=== PATIENT | female | born 1945 | race Caucasian/White ===

== ENCOUNTER 2016-07-13 19:25 | Inpatient (IN) | payer MEDICARE ==
[2016-07-13] MEDS ORDERED: METOPROLOL TARTRATE 25 MG TAB PO ONE (19:40)
[2016-07-13] MEDS ORDERED: ASPIRIN (CHEWABLE) 81 MG TAB PO ONE (19:40)
[2016-07-13] MEDS ORDERED: NS 1,000 ML IV ONE (19:40)
[2016-07-13] MEDS ORDERED: SODIUM CHLORIDE 0.9% 10 ML FLUSH FLUSH PRN (19:40)
[2016-07-13] MEDS: NITROGLYCERINE 0.4 MG TAB SL SCH ×3 (20:00→20:19)
[2016-07-13] MEDS ORDERED: Nitroglycerin D5W 50,000 MCG/250 ML IVBOT IV SCH (20:00)
--- NOTE | 2016-07-13 20:00 | EDPRACDOC ---
- General Information Chief Complaint: Chest Pain Stated Complaint: ARRHYTHMIA Time Seen by Provider: 07/13/16 19:40 Information Source: Patient Mode of Arrival: Car Home Medications: Home Medications Benazepril HCl [Lotensin] 20 mg PO DAILY 09/06/12 Furosemide [Lasix] 40 mg PO DAILY 09/06/12 Pravastatin Sodium [Pravachol] 10 mg PO DAILY 09/06/12 Metformin HCl 850 mg PO BID 09/07/12 Warfarin Sodium [Coumadin] 7 mg PO DAILY@1800 09/07/12 Cyclobenzaprine HCl 10 mg PO BID PRN 10/06/13 Docusate Sodium [Stool Softener] 100 mg PO DAILY PRN 10/06/13 Ferrous Sulfate [Iron] 325 mg PO DAILY 10/06/13 Glimepiride 1 mg PO DAILY 10/06/13 Hydrochlorothiazide 12.5 mg PO DAILY 10/06/13 Metoprolol Tartrate 25 mg PO BID 10/06/13 Digoxin [Lanoxin, Digitek] 0.125 mg PO DAILY 04/08/15 Diltiazem HCl [Cartia Xt] 120 mg PO DAILY 04/08/15 Allergies/Adverse Reactions: Allergies Allergy/AdvReac Type Severity Reaction Status Date / Time codeine Allergy Unknown Nausea/Vomi Verified 07/12/15 05:37 ting morphine Allergy Nausea/Vomi Verified 07/12/15 05:37 ting promethazine HCl Allergy SHAKEN Verified 07/12/15 05:37 [From Phenergan] - History of Present Illness Onset: 30 MINS Chest Pain Location: Reports: Substernal, Left Chest Pain Radiation: Reports: Shoulder (L) Symptoms Occur: Reports: Gradually Cardiac Risk Factors: Reports: Other (AFIB; AORTIC STENOSIS; DISCUSSES SURGERY BEFORE) Cardiac History of: Reports: Valve Disease, Stress Test PE Risk Factors: Reports: None Pain Came On: Reports: Gradually Pain Status: Present Now Pain Description: Reports: Sharp Pain Severity: Mild Pain Worsens With: Reports: Exertion Pain Improves With: Reports: Nitroglycerin Associated Signs and Symptoms: Reports: SOB ED Past Medical History - History Reviewed Yes Nurses notes reviewed and agree except as marked - Patient Medical History Neurological History: Reports: Cerebrovascular Accident (2009), Seizures, Epilepsy Cardiac History: Reports: Atrial Fibrillation, Hypertension, Hypercholesterolemia, Valvular Heart Disease Respiratory History: Reports: Pneumonia Musculoskeletal History: Reports: Arthritis Psychological History: Denies: Depression Systemic History: Reports: Anemia, Diabetes Surgical History: Reports: Cholecystectomy, Hysterectomy (PARTIAL), Tonsillectomy/Adnoidectomy - Family Medical History Reports: Cancer (AUNTS). Denies: Hypertension, Diabetes, Stroke, Cardiac Disorders - Social Medical History Smoking Status: Former smoker EDM Review of Systems - Review of Systems ROS Negative Except as Marked: Yes All systems reviewed and were negative except as marked - Physical Exam Constitutional: Alert (Awake), No apparent distress Oriented to: Time, Person, Place Last recorded Vital Signs: Last Vital Signs Temp Pulse 80 07/13/16 19:55 Resp 22 07/13/16 19:55 BP 141/60 07/13/16 19:55 Pulse Ox 100 07/13/16 19:55 Oxygen Pulse Oxygen Saturation 100 O2 Device Room Air Oxygen Flow Rate Fraction of Inspired Oxygen ( FIO2) - HEENT Head: Normal ( normocephalic) Eye Exam: Normal (PERRL, EOMI, Sclera white) Oropharynx: Normal (Pharynx:Moist without exudate,Gums-no swelling) Tympanic Membrane: Normal ENT EAC: Normal TMJ: Normal Nose: No Symptoms Reported (septum midline) Neck: Normal (FROM, trachea at midline) - Respiratory/Cardiovascular Respiratory: Normal - CTA (BBS clear to auscultation without adventitious sounds ) Cardiovascular: Normal (RRR without murmur, gallop or rub), Systolic murmur - GI Auscultation: Normal (NABS) Palpation: Normal (Soft,No rebound or guarding, non distended) Tenderness: Non tender Lamar's Sign: Negative - Musculoskeletal Back: Normal (Non-Tender) Extremities: Normal (Normal tone, Pulses 2+ No cyanosis or edema, FROM) - Integumentary Skin: Normal, Warm, Dry Lymphatics: Normal (no adenopathy) - Neurologic Memory Impaired: Normal Motor Function: Normal (Normal tone, Pulses 2+ No cyanosis or edema, FROM) Cranial Nerve: Normal (CN II-X11 intact sensation, strength 5/5) Cerebellar: Normal Mood Description: Normal Perception: Normal - Action Patient received Aspirin within last 24 hours?: Yes ASA given in the ED: No Aspirin therapy held due to: Warfarin Home Med Patient received Beta Shakira within last 24hrs: Yes - Results 07/13/16 19:45 - EKG EKG #1 [place]: Normal Rhythm: Afib Block: None Hypertrophy: None ST: Inf, Lat, Ischemia - Additional Information DW DR. SHERMAN. I FAXED HIM OLD AND NEW EKG. WANTS HOSP TO ADMIT. HE WILL SEE TOMORROW AND CHECK ECHO ED Critical Care Note - Critical Care Note Total Time (mins): 35 - Departure Yes I personally saw and evaluated the patient. Disposition: Admit IP To This Hospital Final Diagnosis: Angina, AORTIC STENOSIS Instructions: Chest Pain (ED) Decision to Admit Time: 20:30 (ISAI) Decision to admit date: 07/13/16 Decision to admit: from ED - Physician Consulted Cardiology Time Called: 20:00 (LANE)
[2016-07-13] MEDS ORDERED: HYDROmorphone 1 MG INJECTION IV ONE (20:07)
[2016-07-13] MEDS ORDERED: ONDANSETRON HCL 4 MG/2 ML VIAL IV ONE (20:07)
[2016-07-13] MEDS ORDERED: TRAMADOL HCL 50 MG TAB PO ONE ×2 (20:13→22:00)
[2016-07-13 20:14] LABS: AUTOMATED BASOPHIL 0.7 % (0-2); AUTOMATED LYMPH 30.9 % (17-44); AUTOMATED MONOCYTE 9.1 % (3-10); AUTOMATED NEUTROPHIL 57.3 % (45-76); MPV 7.4 fL (7.4-10.4)
--- NOTE | 2016-07-13 20:15 | DIRPT ---
CLINICAL DATA: 71-year-old female with chest pain and shortness of breath. EXAM: PORTABLE CHEST 1 VIEW COMPARISON: 07/12/2015 and prior exams FINDINGS: The cardiomediastinal silhouette is unremarkable. Mild right basilar scarring again noted. There is no evidence of focal airspace disease, pulmonary edema, suspicious pulmonary nodule/mass, pleural effusion, or pneumothorax. No acute bony abnormalities are identified. IMPRESSION: No active disease. Electronically Signed By: Abdullahi Go M.D. On: 07/13/2016 20:12
[2016-07-13 20:30] LABS: PARTIAL THROMB. TIME 36.9 SEC (22-35); PT-INR 3.7
[2016-07-13 20:32] LABS: BLOOD UREA NITROGEN 21 MG/DL (7-17); CALCIUM 10.1 MG/DL (8.4-10.2); CALCULATED OSMOLALITY 281 MOs/Kg (270-290); CHLORIDE 105 mEq/L (98-107); GLUCOSE 147 MG/DL (70-99); SODIUM LEVEL 143 mEq/L (137-146); TOTAL PROTEIN 7.4 G/DL (6.3-8.2)
--- NOTE | 2016-07-13 21:11 | HISTPHYS ---
- Chief Complaint chest pain, not feeling well - History of Present Illness PRIMARY CARE PROVIDER: Dr. Ethan Marrero PLATE MOLDER: Dr. Kenney HPI: The patient is a 71 yo woman who presents with chest pain and not feeling well. It started this evening after she ate dinner. Her face was flushed and the chest pain started. It is the worst chest pain she ever had. She has also had dizziness with standing up, and felt like she was going to pass out. Onset: Today. Duration: intermittent. Location: substernal. Radiation: right jaw and back. Also right shoulder. Character: Squeezing. Burning. 03/23. Has had pressure in the past but not this time. Alleviated by: Nothing. Exacerbated by: any exertion. Associated Symptoms: Dizziness when standing and felt like she was almost going to pass out. Diaphoresis. Heart racing/palpitations. Shortness of breath with the pain. Coughing. Wheezing. Weakness and fatigue. Fever a week before Katina. Chills have resolved. Recently had a respiratory illness. Treatments: none at home except usual medications. - Medical History Cardiac History: Reports: Atrial Fibrillation, Hypertension, Heart Attack, Cardiac Catheterization (2003), Hypercholesterolemia, Valvular Heart Disease ( AORTIC STENOSIS. Echo 08/2015.) Musculoskeletal History: Reports: Arthritis Systemic History: Reports: Anemia, Diabetes (Type 2.) Neurological History: Reports: Cerebrovascular Accident (2003, 2009), Seizures, Epilepsy Psychological History: Denies: Depression ECHOCARDIOGRAM 08/2015: FINDINGS ------- Procedure:2D images, m-mode, color and spectral Doppler were obtained and reviewed. ECG rhythm:Sinus rhythm. Study quality:This was a technically adequate study. Left Ventricle:The left ventricular size is normal. There is borderline concentric left ventricular hypertrophy. Overall left ventricular systolic function is normal with, an EF between 65 - 70 %. The diastolic filling pattern indicates impaired relaxation. No regional wall motion abnormalities were noted. Right Ventricle:The right ventricle is normal in size and function. Left Atrium:Left atrium is elongated, at least moderately dilated, in NSR. Right Atrium:The right atrium is normal in size and function. Aortic Valve:The aortic valve is trileaflet, calcified with restricted mobility. . Moderate aortic stenosis with peak/mean pressure gradient of 65 / 37 mmHg, the aortic valve area by continuity equation is 1.1 cm2. Trace regurgitation. Mitral Valve:Marked mitral annular calcification and leaflets are moderately thickened, with restricted posterior leaflet mobility. Mild mitral regurgitation is present. Mild mitral stenosis. Tricuspid Valve:The tricuspid valve appears structurally normal. Trace tricuspid regurgitation present. Right ventricular systolic pressure is normal at < 35 mmHg. Pulmonic Valve:The pulmonic valve is normal. There is no pulmonic regurgitation present. Aorta:The aortic root, ascending aorta and aortic arch appear normal. IVC:Normal inferior vena cava with normal inspiratory collapse. Pericardium:There is no pericardial effusion. CONCLUSIONS EF between 65 - 70 %. 1. AORTIC STENOSIS: calcific aortic stenosis - moderate - with trace aortic regurgitation 2. mitral annular calcification and leaflet thickening, mild stenosis and mild mitral regurgitation 3. moderate left atrial dilataiton, in NSR 4. normal right heart size/function, mild TR, normal pulm artery pressure suggested. 5. The diastolic filling pattern indicates impaired relaxation. cc: Dr. Marrero. - Surgical History Reports: Cholecystectomy, Hysterectomy (PARTIAL), Tonsillectomy/Adnoidectomy - Medictions/Allergies Allergies codeine Allergy (Unknown, Verified 07/13/16 20:07) Nausea/Vomiting morphine Allergy (Verified 07/13/16 20:07) Nausea/Vomiting promethazine HCl [From Phenergan] Allergy (Verified 07/13/16 20:07) SHAKEN Current Medication List: Reviewed Home Medications Benazepril HCl [Lotensin] 20 mg PO DAILY 09/06/12 Furosemide [Lasix] 40 mg PO DAILY 09/06/12 Pravastatin Sodium [Pravachol] 10 mg PO DAILY 09/06/12 Metformin HCl 850 mg PO BID 09/07/12 Warfarin Sodium [Coumadin] 7 mg PO DAILY@1800 09/07/12 Glimepiride 1 mg PO BID 10/06/13 Hydrochlorothiazide 12.5 mg PO DAILY 10/06/13 Digoxin [Lanoxin, Digitek] 0.125 mg PO DAILY 04/08/15 Diltiazem HCl [Cartia Xt] 120 mg PO DAILY 04/08/15 Cholecalciferol (Vitamin D3) [D3 Dots] 2,000 unit PO DAILY 07/13/16 Cyclobenzaprine HCl [Flexeril] 10 mg PO BID PRN 07/13/16 Docusate Sodium [Stool Softener] 100 mg PO DAILY 07/13/16 Ferrous Sulfate [Feosol] 325 mg PO .BID MOWEFR 07/13/16 Ferrous Sulfate [Feosol] 325 mg PO SUTUTHSA 07/13/16 Metoprolol Tartrate [Lopressor] 25 mg PO BID 07/13/16 Omeprazole 20 mg PO DAILY 07/13/16 Tramadol HCl [Ultram] 50 mg PO QAM 07/13/16 Tramadol HCl [Ultram] 100 mg PO HS 07/13/16 - Family History Reports: Cancer (Mother: liver. AUNT - liver.), Other (Father unknown. No other family history known.) - Social History Smoking Status: Former smoker (smoked only about 3 years in her life) Social History: Denies: Alcohol Use, Substance Use Disorder - Review of Systems GENERAL: Diaphoresis. Positive for fatigue/malaise. Fever a week before Katina. Chills have resolved. HEENT: No ear pain or discharge. No nasal discharge or bleeding. No throat pain or swelling. No eye pain or eye redness. RESPIRATORY: Cough, wheezing, and shortness of breath. CARDIOVASCULAR: Chest pain and palpitations. GI: No abdominal pain, nausea, vomiting, diarrhea, constipation, or bloody stool. NEUROLOGICAL: No headache or focal weakness. INTEGUMENT: no rashes, itching, or lesions. LYMPHATIC SYSTEM: no lymph node swelling or pain. MUSCULOSKELETAL: no pain or joint swelling. GENITOURINARY: No dysuria or hematuria. ENDOCRINE: No polyuria or polydipsia. HEME: No chronic anemia, bleeding, or easy bruising. - Physical Exam Vital Signs: Initial Vitals Pulse Rate 72 07/13/16 19:41 Respiratory Rate 22 07/13/16 19:41 Blood Pressure 134/56 L 07/13/16 19:41 Pulse Oxygen Saturation 100 07/13/16 19:41 Vital Signs - 24 hr 07/13/16 07/13/16 07/13/16 19:41 19:46 19:55 Pulse Rate 72 86 80 Respiratory 22 20 22 Rate Blood Pressure 134/56 L 139/59 L 141/60 Pulse Oxygen 100 100 100 Saturation 07/13/16 07/13/16 07/13/16 19:56 20:01 20:06 Pulse Rate 95 94 97 Respiratory 22 22 20 Rate Blood Pressure 124/58 L 130/60 115/56 L Pulse Oxygen 100 100 100 Saturation 07/13/16 07/13/16 07/13/16 20:11 20:15 20:20 Pulse Rate 81 104 136 H Respiratory 20 20 20 Rate Blood Pressure 116/69 117/65 132/58 L Pulse Oxygen 100 100 99 Saturation 07/13/16 07/13/16 07/13/16 20:25 20:28 20:31 Pulse Rate 106 107 99 Respiratory 20 20 20 Rate Blood Pressure 119/58 L 118/55 L 105/52 L Pulse Oxygen 99 98 95 Saturation 07/13/16 07/13/16 07/13/16 20:36 20:41 20:46 Pulse Rate 72 72 97 Respiratory 20 20 20 Rate Blood Pressure 118/55 L 118/55 L 159/61 Pulse Oxygen 98 98 99 Saturation Weight: 74.4 kg Height: 5'3" BMI: 29.1 - Other Exam Other Exam Findings: GENERAL: Ill-appearing, well nourished, in acute distress. HEENT: Normocephalic, atraumatic; pupils equal and round. Nares patent, without discharge or bleeding. No oropharyngeal lesions or erythema. Mucous membranes are dry. NECK: is supple, no masses, trachea midline. RESPIRATORY: Clear to auscultation bilaterally. Chest wall movements are symmetric. No use of accessory muscles to breathe. No wheezing, rales, rhonchi. CARDIOVASCULAR: Normal S1, S2. Murmur 3/6 systolic. No rubs, or gallops. PMI non -displaced. Carotids: no carotid bruits. No bradycardia or tachycardia. DP pulses 2+ bilaterally. GI: soft, nontender, non-distended, normal active bowel sounds. No hepatosplenomegaly. INTEGUMENT: Clean, dry, and intact. No rashes. No lesions. MUSCULOSKELETAL: Moving all extremities. No cyanosis. No clubbing. Edema: trace lower extremity edema bilaterally. NEUROLOGICAL: Cranial nerves 2-12 grossly intact. Motor 5/5 throughout. Reflexes : 2+ bilaterally. Babinski: toes downgoing bilaterally. Intact Finger to nose. Sensory grossly intact to light touch. Intact rapid alternating movements bilaterally. No pronator drift. PSYCHIATRIC: Fully oriented. Normal and appropriate affect. LYMPHATIC: No cervical lymphadenopathy. No supraclavicular lymphadenopathy. - Lab Results Laboratory Results - last 24 hr 07/13/16 07/13/16 07/13/16 19:45 19:45 19:45 WBC 9.5 RBC 3.79 L Hgb 10.7 L Hct 32.8 L MCV 87 MCH 28.3 MCHC 32.7 L RDW 14.1 Plt Count 320 MPV 7.4 Neut % (Auto) 57.3 Lymph % (Auto) 30.9 Ocean % (Auto) 9.1 Eos % (Auto) 2.0 Baso % (Auto) 0.7 Absolute Neuts (auto) 5.42 Absolute Lymphs (auto) 2.85 PT INR APTT Sodium 143 Potassium 3.2 L Chloride 105 Carbon Dioxide 24 Anion Gap 17 H BUN 21 H Creatinine 0.90 Estimated GFR (MDRD) > 60 Glucose 147 H Calculated Osmolality 281 Calcium 10.1 Total Bilirubin 0.4 AST 28 ALT 33 Alkaline Phosphatase 79 Troponin I < 0.01 Yvv-M-Kivvmedvnht Pept 1820 H Total Protein 7.4 Albumin 4.0 Digoxin 0.80 07/13/16 20:10 WBC RBC Hgb Hct MCV MCH MCHC RDW Plt Count MPV Neut % (Auto) Lymph % (Auto) Ocean % (Auto) Eos % (Auto) Baso % (Auto) Absolute Neuts (auto) Absolute Lymphs (auto) PT 38.5 H INR 3.7 APTT 36.9 H Sodium Potassium Chloride Carbon Dioxide Anion Gap BUN Creatinine Estimated GFR (MDRD) Glucose Calculated Osmolality Calcium Total Bilirubin AST ALT Alkaline Phosphatase Troponin I Euh-H-Gxjqezixoqu Pept Total Protein Albumin Digoxin - Diagnostic Findings EKG #1 at 19:36: 94 bpm. Atrial fibrillation with PACs. ST depression and elevation, consider lateral injury or acute infarct. Marked ST depression in leads 2, 3, aVF, V3, V4, V5, and V6. Elevation in aVR. Minimal elevation of aVL. Reviewed EKG personally. EKG #2 at 1944: 81 bpm. Atrial fibrillation with PACs. ST depression and elevation, consider lateral injury or acute infarct. Marked ST depression in leads 2, 3, aVF, V3, V4, V5, and V6. Elevation in aVR. Minimal elevation of aVL. Reviewed EKG personally. Compared above EKGs to previous EKG from 06/2015: ST depressions in 2, 3, aVF, V4, V5, and V6 were all present but new EKGs have deeper ST depressions. The elevations in aVR and minimal elevation in aVL are essentially unchanged. Reviewed EKG personally. Chest x-ray, viewed personally: EXAM: PORTABLE CHEST 1 VIEW COMPARISON: 07/12/2015 and prior exams FINDINGS: The cardiomediastinal silhouette is unremarkable. Mild right basilar scarring again noted. There is no evidence of focal airspace disease, pulmonary edema, suspicious pulmonary nodule/mass, pleural effusion, or pneumothorax. No acute bony abnormalities are identified. IMPRESSION: No active disease. - Assessment (1) NSTEMI (non-ST elevated myocardial infarction) I21.4 - NON-ST ELEVATION (NSTEMI) MYOCARDIAL INFARCTION Resolved Present on Admission: Yes Plan: Obtain cardiac enzymes x 3. Place patient on telemetry. Give patient oxygen, aspirin. Give nitroglycerin, and morphine as needed for chest pain. Give statin. Beta heena. SILVIA inhibitor. On warfarin and therapeutic. Update: Patient has required an IV nitroglycerin gtt for her chest pain; will continue. Per emergency department physician, Dr. Kenney has reveiwed the EKGs and requested that the patient be admitted and an echocardiogram ordered for the morning, and that he would consult on the patient. (2) Atrial fibrillation I48.91 - UNSPECIFIED ATRIAL FIBRILLATION Chronic Present on Admission: Yes Plan: Continue medications. Telemetry. Continue warfarin. Check INR daily. Hold warfarin or modify dose if INR is greater than 3. (3) Aortic stenosis I35.0 - NONRHEUMATIC AORTIC (VALVE) STENOSIS Acute Present on Admission: Yes Patient has known aortic stenosis. Plan: Echocardiogram in the a.m.. Cardiology consult by Dr. Kenney. (4) Dizziness R42 - DIZZINESS AND GIDDINESS Acute Present on Admission: Yes Concerning given patient's aortic stenosis. Patient reported she felt like she was going to pass out recently. Plan: Evaluation by Dr. Kenney. (5) Hypokalemia E87.6 - HYPOKALEMIA Acute Present on Admission: Yes Replace potassium with KCl. Check magnesium level and replace as needed. (6) Type 2 diabetes mellitus with hyperglycemia E11.65 - TYPE 2 DIABETES MELLITUS WITH HYPERGLYCEMIA Acute Present on Admission: Yes Plan: Hold oral medications. SSI and FSBS qac and hs. Case Care Discussed with: Patient, Consultants (Dr. Kenney), Family, Nursing Staff, Other (Emergency department physician) Total Time: 70 min
[2016-07-13] MEDS ORDERED: CYCLOBENZAPRINE 10 MG TAB PO PRN (21:48)
[2016-07-13] MEDS ORDERED: SIMETHICONE 80 MG TAB PO PRN (21:52)
[2016-07-13] MEDS ORDERED: ONDANSETRON HCL 4 MG/2 ML VIAL IV PRN (21:52)
[2016-07-13] MEDS ORDERED: TEMAZEPAM 15 MG CAP PO PRN (21:52)
[2016-07-13] MEDS ORDERED: NITROGLYCERINE 0.4 MG TAB SL PRN (21:52)
[2016-07-13] MEDS ORDERED: BENZONATATE 100 MG PERLES PO PRN (21:52)
[2016-07-13] MEDS ORDERED: Aluminum;Magnesium;Simethicone 30 ML UDC PO PRN (21:52)
[2016-07-13] MEDS ORDERED: ACETAMINOPHEN 325 MG SUPP PR PRN (21:52)
[2016-07-13] MEDS ORDERED: BISACODYL 5 MG TAB PO PRN (21:52)
[2016-07-13] MEDS ORDERED: GUAIFEN 100 MG-DEXTROMETH 10 MG PER 5 ML PO PRN (21:52)
[2016-07-13] MEDS ORDERED: SENNA CONCENTRATE TAB PO PRN (21:52)
[2016-07-13] MEDS ORDERED: ACETAMINOPHEN 325 MG/TAB TABLET PO PRN (21:52)
[2016-07-13] MEDS ORDERED: GLUCOSE (ORAL GEL) 15 GM TUBE PO PRN (21:54)
[2016-07-13] MEDS ORDERED: GLUCAGON 1 MG VIAL SQ PRN (21:54)
[2016-07-13] MEDS ORDERED: DEXTROSE 25 GM/50 ML PFS IV PRN (21:54)
[2016-07-13] MEDS ORDERED: HYDROmorphone 1 MG INJECTION IV PRN (21:56)
[2016-07-13] MEDS ORDERED: LORAZEPAM 2 MG/ML VIAL IV PRN (21:56)
[2016-07-13] MEDS ORDERED: PRAVASTATIN 80 MG TABLET PO SCH (22:00)
[2016-07-13] MEDS ORDERED: PRAVASTATIN SODIUM 80 MG PO SCH (22:00)
[2016-07-13] MEDS ORDERED: DEXTROSE IV SCH (22:00)
[2016-07-13] MEDS ORDERED: Non-Formulary Medication ITEM (Ferrous Sulfate [Feosol] 325 MG) PO SCH ×2 (22:00)
[2016-07-13] MEDS ORDERED: Pharmacy Order Set Alert SCH (22:00)
[2016-07-13] MEDS ORDERED: NITROGLYCERIN IV SCH (22:00)
[2016-07-13] MEDS ORDERED: Vaccine Screening Complete SCH (23:00)
[2016-07-13] MEDS: METOPROLOL TARTRATE 25 MG TAB PO SCH (23:05)
[2016-07-14 04:06] VITALS: BMI 29.2
[2016-07-14] MEDS: REGULAR INSULIN 100 UNITS/ML - 3 ML VIAL SQ SCH ×2 (05:14→12:47)
[2016-07-14] MEDS ORDERED: PANTOPRAZOLE 40 MG TAB PO SCH (06:00)
[2016-07-14] MEDS ORDERED: PNEUMOCOCCAL 0.5 ML VIAL IM ONE (08:00)
[2016-07-14] MEDS ORDERED: FLU VACCINE (Afluria) 0.5 ML DOSE IM ONE (08:00)
[2016-07-14 08:25] LABS: MPV 6.7 fL (7.4-10.4)
[2016-07-14 08:41] LABS: PT-INR 2.2
[2016-07-14] MEDS ORDERED: Docusate Sodium 100 MG CAP PO SCH (09:00)
[2016-07-14] MEDS ORDERED: DIGOXIN 0.125 MG TAB PO SCH (09:00)
[2016-07-14] MEDS ORDERED: DOCUSATE SODIUM 100 MG PO SCH (09:00)
[2016-07-14] MEDS ORDERED: HYDROCHLOROTHIAZIDE 12.5 MG PO SCH (09:00)
[2016-07-14] MEDS ORDERED: TRAMADOL HCL 50 MG TAB PO SCH ×2 (09:00→21:00)
[2016-07-14] MEDS ORDERED: BENAZEPRIL 20 MG TAB PO SCH (09:00)
[2016-07-14] MEDS ORDERED: FUROSEMIDE 40 MG TAB PO SCH (09:00)
[2016-07-14] MEDS ORDERED: WARFARIN EDUCATION DOCUMENTATION ONE (09:00)
[2016-07-14] MEDS ORDERED: HYDROCHLOROTHIAZIDE 12.5 MG CAP PO SCH (09:00)
[2016-07-14] MEDS ORDERED: CHOLECALCIFEROL 2000 UNIT PO SCH (09:00)
[2016-07-14] MEDS ORDERED: Non-Formulary Medication ITEM (Omeprazole [Omeprazole] 20 MG) PO SCH (09:00)
[2016-07-14] MEDS: METOPROLOL TARTRATE 25 MG TAB PO SCH ×2 (09:22→10:50)
[2016-07-14] MEDS: DILTIAZEM HCL 120 MG CAPSULE.CR PO SCH ×3 (09:24→11:07)
[2016-07-14] MEDS: KCl 10 mEq/100 ml Premix (Run) 10 MEQ/100 ML RTU IV SCH ×2 (09:31→11:41)
[2016-07-14 09:32] LABS: BLOOD UREA NITROGEN 23 MG/DL (7-17); CALCIUM 8.9 MG/DL (8.4-10.2); CALCULATED OSMOLALITY 278 MOs/Kg (270-290); CHLORIDE 105 mEq/L (98-107); GLUCOSE 110 MG/DL (70-99); LDL (calc.) 80.6 MG/DL (<100); SODIUM LEVEL 142 mEq/L (137-146); VLDL (calc.) 44.4 MG/DL (5-40)
--- NOTE | 2016-07-14 10:21 | PCM.CARDCO ---
Consultation Date: 07/14/16 Requesting Physician: Christian Peng Nitrator Operator: Dawit Kenney Consult Reason: Other (Aortic stenosis) - History of Present Illness Patient is a 71 years old woman with known aortic stenosis she presented to the hospital because she started having chest pain yesterday she was sitting at the table eating and then her daughter noticed that her face was flushed after that she started having tightness in the chest there were also some sharp stabbing like pain in the chest. She end up coming to the hospital. She also described the situation when she was trying to get up and walk to her car she was getting dizzy almost to the point of passing out however she did not passed out. Recently she also notices more shortness of breath than previously. She does have known aortic stenosis which was moderate during last evaluation which was many months ago however her echocardiogram today showed critical aortic stenosis with calculated aortic valve area less than 1 centimeter sq with mean gradient of 49 mm of mercury. On at the moment of my interview lady is asymptomatic. She denies have any chest pain tightness squeezing pressure burning in the chest. Chief Complaint: chest pain, not feeling well - Past Medical and Surgical History Cardiac History: Reports: Atrial Fibrillation, Hypertension, Heart Attack, Cardiac Catheterization (2003), Hypercholesterolemia, Valvular Heart Disease ( AORTIC STENOSIS. Echo 08/2015.) Systemic History: Reports: Anemia, Diabetes (Type 2.) Musculoskeletal History: Reports: Arthritis Psychological History: Denies: Depression, Alcoholism, Substance Use Disorder Neurological History: Reports: Cerebrovascular Accident (2003, 2009), Seizures, Epilepsy Past Surgical History: Reports: Cholecystectomy, Hysterectomy (PARTIAL), Cardiac Catheterization (2003), Tonsillectomy/Adnoidectomy Allergies codeine Allergy (Unknown, Verified 07/13/16 20:07) Nausea/Vomiting morphine Allergy (Verified 07/13/16 20:07) Nausea/Vomiting promethazine HCl [From Phenergan] Allergy (Verified 07/13/16 20:07) SHAKEN Home Medications Benazepril HCl [Lotensin] 20 mg PO DAILY 09/06/12 Furosemide [Lasix] 40 mg PO DAILY 09/06/12 Pravastatin Sodium [Pravachol] 10 mg PO DAILY 09/06/12 Metformin HCl 850 mg PO BID 09/07/12 Warfarin Sodium [Coumadin] 7 mg PO DAILY@1800 09/07/12 Glimepiride 1 mg PO BID 10/06/13 Hydrochlorothiazide 12.5 mg PO DAILY 10/06/13 Digoxin [Lanoxin, Digitek] 0.125 mg PO DAILY 04/08/15 Diltiazem HCl [Cartia Xt] 120 mg PO DAILY 04/08/15 Cholecalciferol (Vitamin D3) [D3 Dots] 2,000 unit PO DAILY 07/13/16 Cyclobenzaprine HCl [Flexeril] 10 mg PO BID PRN 07/13/16 Docusate Sodium [Stool Softener] 100 mg PO DAILY 07/13/16 Ferrous Sulfate [Feosol] 325 mg PO .BID MOWEFR 07/13/16 Ferrous Sulfate [Feosol] 325 mg PO SUTUTHSA 07/13/16 Metoprolol Tartrate [Lopressor] 25 mg PO BID 07/13/16 Omeprazole 20 mg PO DAILY 07/13/16 Tramadol HCl [Ultram] 50 mg PO QAM 07/13/16 Tramadol HCl [Ultram] 100 mg PO HS 07/13/16 - Social History Smoking Status: Former smoker (smoked only about 3 years in her life) Social History: Denies: Alcohol Use, Substance Use Disorder - Family History Reports: Cancer (Mother: liver. AUNT - liver.), Other (Father unknown. No other family history known.) - Physical Exam Constitutional: Alert (Awake), No apparent distress Oriented to: Time, Person, Place Exam: Last Vital Signs Temp 97.7 F 07/14/16 05:00 Pulse 78 07/14/16 10:04 Resp 18 07/14/16 07:00 BP 135/66 07/14/16 10:04 Pulse Ox 94 07/14/16 07:00 Intake & Output 07/13/16 07/14/16 07/14/16 23:59 07:59 15:59 Intake Total 425 308 200 Output Total 320 Balance 425 308 -120 Patient's weight 75.024 kg - HEENT Head: Normal ( normocephalic) Eye: Normal (PERRL, EOMI, Sclera white) Oropharynx: Normal (Pharynx:Moist without exudate,Gums-no swelling) Tympanic Membrane: Normal ENT EAC: Normal TMJ: Normal Nose: No Symptoms Reported (septum midline) - Respiratory/Cardiovascular Respiratory: Normal - CTA (BBS clear to auscultation without adventitious sounds ) - GI Auscultation: Normal (NABS) Palpation: Normal (Soft,No rebound or guarding, non distended) Tenderness: Non tender - Musculoskeletal Back: Normal (Non-Tender) Extremities: Normal (Normal tone, Pulses 2+ No cyanosis or edema, FROM) - Integumentary Skin: Normal, Warm, Dry Lymphatics: Normal (no adenopathy) - Neurologic Memory Impaired: Normal Cerebellar: Normal Mood Description: Normal Perception: Normal - Other Exam Other Exam Findings: General Appearance: Well developed. Well nourished. In no acute distress. Lungs: Chest was not overinflated. Clear to auscultation. Cardiovascular: Jugular Venous Distention: JVD not increased. Heart Rate And Rhythm: Irregular irregular. Heart Sounds: Normal. Murmurs: Systolic ejection murmur grade 3/6 best heard the right upper portion of the sternum with radiation towards the neck, S2 is absent. Carotid Arteries: Carotid pulses were normal. No bruit in the carotid artery. Edema: Not present. Lower extremities pulses normal (including femoral popliteal and dorsalis pedis) . Musculoskeletal System: General/bilateral: No cyanosis of the fingers. Neurological: Oriented to time, place, and person. Nails: No clubbing of the fingernails. - Lab Results Laboratory Tests 07/13/16 07/13/16 07/13/16 19:45 19:45 19:45 WBC 9.5 RBC 3.79 L Hgb 10.7 L Hct 32.8 L MCV 87 MCH 28.3 MCHC 32.7 L RDW 14.1 Plt Count 320 MPV 7.4 Neut % (Auto) 57.3 Lymph % (Auto) 30.9 Stewart % (Auto) 9.1 Eos % (Auto) 2.0 Baso % (Auto) 0.7 Absolute Neuts (auto) 5.42 Absolute Lymphs (auto) 2.85 PT INR APTT Sodium 143 Potassium 3.2 L Chloride 105 Carbon Dioxide 24 Anion Gap 17 H BUN 21 H Creatinine 0.90 Estimated GFR (MDRD) > 60 Glucose 147 H POC Capillary Glucose Hemoglobin A1c Calculated Osmolality 281 Calcium 10.1 Magnesium Total Bilirubin 0.4 AST 28 ALT 33 Alkaline Phosphatase 79 Creatine Kinase Troponin I < 0.01 Aaw-S-Shjqnqmxfko Pept 1820 H Total Protein 7.4 Albumin 4.0 Triglycerides Cholesterol LDL Cholesterol, Calc VLDL Cholesterol, Calc HDL Cholesterol Cholesterol/HDL Ratio Digoxin 0.80 07/13/16 07/13/16 07/13/16 19:45 20:10 23:20 WBC RBC Hgb Hct MCV MCH MCHC RDW Plt Count MPV Neut % (Auto) Lymph % (Auto) Stewart % (Auto) Eos % (Auto) Baso % (Auto) Absolute Neuts (auto) Absolute Lymphs (auto) PT 38.5 H INR 3.7 APTT 36.9 H Sodium Potassium Chloride Carbon Dioxide Anion Gap BUN Creatinine Estimated GFR (MDRD) Glucose POC Capillary Glucose Hemoglobin A1c 6.5 H Calculated Osmolality Calcium Magnesium Total Bilirubin AST ALT Alkaline Phosphatase Creatine Kinase Troponin I 0.20 Fql-I-Qhxrmskquwr Pept Total Protein Albumin Triglycerides Cholesterol LDL Cholesterol, Calc VLDL Cholesterol, Calc HDL Cholesterol Cholesterol/HDL Ratio Digoxin 07/14/16 07/14/16 07/14/16 01:25 03:42 08:01 WBC RBC Hgb Hct MCV MCH MCHC RDW Plt Count MPV Neut % (Auto) Lymph % (Auto) Stewart % (Auto) Eos % (Auto) Baso % (Auto) Absolute Neuts (auto) Absolute Lymphs (auto) PT 22.5 H INR 2.2 APTT Sodium Potassium Chloride Carbon Dioxide Anion Gap BUN Creatinine Estimated GFR (MDRD) Glucose POC Capillary Glucose 136 H Hemoglobin A1c Calculated Osmolality Calcium Magnesium Total Bilirubin AST ALT Alkaline Phosphatase Creatine Kinase Troponin I 0.47 H* Oxt-I-Rbmvzslowyr Pept Total Protein Albumin Triglycerides Cholesterol LDL Cholesterol, Calc VLDL Cholesterol, Calc HDL Cholesterol Cholesterol/HDL Ratio Digoxin 07/14/16 07/14/16 07/14/16 08:01 08:01 08:01 WBC 6.6 RBC 2.92 L Hgb 8.3 L D Hct 24.7 L MCV 85 MCH 28.4 MCHC 33.6 RDW 14.1 Plt Count 256 MPV 6.7 L Neut % (Auto) Lymph % (Auto) Stewart % (Auto) Eos % (Auto) Baso % (Auto) Absolute Neuts (auto) Absolute Lymphs (auto) PT INR APTT Sodium 142 Potassium 3.7 Chloride 105 Carbon Dioxide 30 Anion Gap 11 BUN 23 H Creatinine 0.90 Estimated GFR (MDRD) > 60 Glucose 110 H POC Capillary Glucose Hemoglobin A1c Calculated Osmolality 278 Calcium 8.9 Magnesium Total Bilirubin AST ALT Alkaline Phosphatase Creatine Kinase 63 Troponin I 0.78 H* Hak-K-Vubaqxhmgve Pept Total Protein Albumin Triglycerides 222 H Cholesterol 167 LDL Cholesterol, Calc 80.6 VLDL Cholesterol, Calc 44.4 H HDL Cholesterol 42.0 Cholesterol/HDL Ratio 4.0 Digoxin 07/14/16 08:01 WBC RBC Hgb Hct MCV MCH MCHC RDW Plt Count MPV Neut % (Auto) Lymph % (Auto) Stewart % (Auto) Eos % (Auto) Baso % (Auto) Absolute Neuts (auto) Absolute Lymphs (auto) PT INR APTT Sodium Potassium Chloride Carbon Dioxide Anion Gap BUN Creatinine Estimated GFR (MDRD) Glucose POC Capillary Glucose Hemoglobin A1c Calculated Osmolality Calcium Magnesium 1.50 L Total Bilirubin AST ALT Alkaline Phosphatase Creatine Kinase Troponin I Jvm-S-Paxgwrxlfbu Pept Total Protein Albumin Triglycerides Cholesterol LDL Cholesterol, Calc VLDL Cholesterol, Calc HDL Cholesterol Cholesterol/HDL Ratio Digoxin - Diagnostic Findings Electrocardiogram showed atrial fibrillation controlled ventricular rate, she does have diffuse ST segment depression in multiple leads however that EKG is identicalKG done months ago. - Assessment/Plan (1) Aortic stenosis I35.0 - NONRHEUMATIC AORTIC (VALVE) STENOSIS Chronic Present on Admission: Yes nonrheumatic I35.0 - Nonrheumatic aortic (valve) stenosis Comment: Aortic valve appears to be critical right now mean gradient is 49 mm of mercury calculated aortic valve area less than 1 centimeter sq. Will hold her nitroglycerin, will use beta-heena as well as calcium drug look heena very carefully. Will avoid diuretics. She will be transferred to [facility] with intention to do cardiac catheterization to delineate her coronary artery as well as to recheck on her aortic valve. She will required aortic valve replacement (2) Angina I20.9 - ANGINA PECTORIS, UNSPECIFIED Acute Present on Admission: Yes Comment: Most likely related to significant aortic valve stenosis. Cardiac catheterization will be done as well to make sure there is no significant coronary artery disease (3) Type 2 diabetes mellitus with hyperglycemia E11.65 - TYPE 2 DIABETES MELLITUS WITH HYPERGLYCEMIA Acute Comment: Follow by primary care physicians (4) Atrial fibrillation I48.91 - UNSPECIFIED ATRIAL FIBRILLATION Chronic Present on Admission: Yes chronic I48.2 - Chronic atrial fibrillation Comment: Rate is control she is anticoagulated will put Coumadin on hold with anticipation of cardiac catheterization Plan: Overall lady came with chest pain shortness of breath near syncopal episodes. She does have significant aortic stenosis will transferred to [facility] for evaluation. Additional issues her H&H dropping. Will check the stool for guaiac will give her proton pump inhibitor.
--- NOTE | 2016-07-14 10:45 | PCM.DCS92 ---
- Final/Secondary Discharge Diagnosis (1) Acute coronary syndrome Acute I24.9 - ACUTE ISCHEMIC HEART DISEASE, UNSPECIFIED Present on Admission: Yes Comment: Significant abnormalities on echo. Troponins have trended up slightly. Dr. Kenney is recommended transfer to [facility] for further evaluation. (2) Hypokalemia Acute E87.6 - HYPOKALEMIA Present on Admission: Yes Comment: Replete as needed (3) Type 2 diabetes mellitus with hyperglycemia Acute E11.65 - TYPE 2 DIABETES MELLITUS WITH HYPERGLYCEMIA Present on Admission: Yes without terminal system operator use E11.65 - Type 2 diabetes mellitus with hyperglycemia Comment: Holding oral medications. Accu-Cheks and sliding scale insulin. (4) Aortic stenosis Chronic I35.0 - NONRHEUMATIC AORTIC (VALVE) STENOSIS Present on Admission: Yes nonrheumatic I35.0 - Nonrheumatic aortic (valve) stenosis Comment: Critical per Dr. Kenney. Being transferred to [facility] for further evaluation. (5) Atrial fibrillation Chronic I48.91 - UNSPECIFIED ATRIAL FIBRILLATION Present on Admission: Yes chronic I48.2 - Chronic atrial fibrillation Comment: On warfarin. May need to be held for possible heart catheterization. Will leave choice of anticoagulation up to Dr. Kenney. (6) Anemia Acute D64.9 - ANEMIA, UNSPECIFIED Present on Admission: Yes unspecified type D64.9 - Anemia, unspecified Comment: Some worse today. No evidence of active bleeding. Continue to monitor and transfuse as needed. Discharge Disposition: Trans. to Other Hospital Discharge Condition: Serious Cognitive Discharge Status: Unimpaired Fuctional Discharge Status: Deconditioning Physician Follow up/Referrals: None,No Provider [Primary Care Provider] - One Week O2 Device: Room Air Diet at Discharge: Heart Healthy Activity: As Tolerated - DC Summary Notes Hospital Course Note:: Discharge summary on patient named SAVI CHOWDHURY admitted to [facility] on 07/13/16 by Christian Peng MD. Date of discharge is []. Ms Chowdhury is a 71-year-old white female with history of aortic stenosis and coronary artery disease who was admitted overnight with complaint of chest pain. She has become increasingly short of breath and weak of late. She also had some concerning EKG changes for possible ischemia. She was admitted to the hospital. We had Dr. Kenney with Cardiology see her in consultation. She underwent an echo which revealed worsening of her aortic stenosis and is now critical. She is being transferred to [facility] for further evaluation and management. She will likely need cardiac catheterization and aortic valve replacement. At the time of transfer vitals are stable and she is currently chest pain-free and resting comfortably in bed. Total Time: 45 minutes - Physical Exam Vital Signs: Last Vital Signs Temp 97.7 F 07/14/16 05:00 Pulse 78 07/14/16 10:04 Resp 18 07/14/16 07:00 BP 135/66 07/14/16 10:04 Pulse Ox 94 07/14/16 07:00 Oxygen Pulse Oxygen Saturation 94 O2 Device Room Air Oxygen Flow Rate Fraction of Inspired Oxygen ( FIO2) Constitutional: No apparent distress, Alert (Awake), Well appearing Oriented to: Time, Person, Place - HEENT Head: Normal ( normocephalic) Eye: Normal (PERRL, EOMI, Sclera white) Oropharynx: Normal (Pharynx:Moist without exudate,Gums-no swelling) Tympanic Membrane: Normal ENT EAC: Normal TMJ: Normal Nose: No Symptoms Reported (septum midline) - Respiratory/Cardiovascular Respiratory: Normal - CTA (BBS clear to auscultation without adventitious sounds ) Cardiovascular: Systolic murmur - GI Auscultation: Normal (NABS) Palpation: Normal (Soft,No rebound or guarding, non distended) Tenderness: Non tender - Musculoskeletal Back: Normal (Non-Tender) Extremities: Normal (Normal tone, Pulses 2+ No cyanosis or edema, FROM) - Integumentary Skin: Normal, Warm, Dry Lymphatics: Normal (no adenopathy) - Neurologic Memory Impaired: Normal Motor Function: Normal Cranial Nerve: Normal Cerebellar: Normal Mood Description: Normal Thought: Coherent Perception: Normal
[2016-07-14] MEDS ORDERED: ALPRAZOLAM 0.5 MG TAB PO PRN ×2 (10:46→11:27)
[2016-07-14 10:54] VITALS: BP 136/63
[2016-07-14 11:03] VITALS: TEMP 97.9
--- NOTE | 2016-07-14 11:20 | CAPUECHO ---
INDICATION: CHEST PAIN/ AORTIC STENOSIS HEIGHT: 160.0 cm (5 ft 3.0 in) WEIGHT: 74.4 kg (164.0 lbs) BP: 106/51 BSA: 1.074785 m MEASUREMENTS 2D RVIDd: 2.4 cm LVOT Diam: 1.9 cm IVSd: 1.4 cm LVIDd: 4.0 cm LVPWd: 1.4 cm LVIDs: 2.8 cm EF(Teich): 57.13 % LA Diam: 3.9 cm EF Biplane: 70.80 % LAESV MOD A4C: 69.2 ml LAESV MOD A2C: 86.3 ml LAESV Index (A-L): 48.48 ml/m DOPPLER MV E Gunnar: 1.69 m/s MV A Gunnar: 1.22 m/s MV PHT: 73.41 ms MVA By PHT: 3.00 cm LVOT Vmax: 1.37 m/s AV Vmax: 4.16 m/s FINDINGS ------- Procedure:2D images, m-mode, color and spectral Doppler were obtained and reviewed. ECG rhythm:Sinus rhythm. Study quality:This was a technically adequate study. Left Ventricle:The left ventricular size is normal. There is mild concentric left ventricular hype rtrophy. Overall left ventricular systolic function is normal with, an EF between 60 - 65 %. Right Ventricle:The right ventricle is normal in size and function. Left Atrium:The left atrium is mildly dilated. Right Atrium:The right atrium is normal in size and function. Aortic Valve:The aortic valve is trileaflet and appears structurally normal. There is moderate aor tic valve sclerosis. There is severe aortic stenosis present. Peak/mean gradient across the valv e is 69/49 mmHg, JOSH 0.94 cm2 Mitral Valve:The mitral valve leaflets are moderately thickened. Mild mitral regurgitation is pres ent. MVA 3.0 cm square. Mild mitral stenosis. Tricuspid Valve:The tricuspid valve appears structurally normal. Trace tricuspid regurgitation pre sent. Pulmonic Valve:The pulmonic valve is normal. Trace/mild (physiologic) pulmonic regurgitation. Aorta:The aortic root, ascending aorta and aortic arch appear normal. IVC:Normal inferior vena cava with normal inspiratory collapse. Pericardium:There is no pericardial effusion. CONCLUSIONS 1. There is mild concentric left ventricular hypertrophy. 2. Overall left ventricular systolic function is normal with, an EF between 60 - 65 %. 3. The left atrium is mildly dilated. 4. There is severe aortic stenosis present. 5. Peak/mean gradient across the valve is 69/49 mmHg, JOSH 0.94 cm2 6. Mild mitral regurgitation is present. MVA 3.0 cm square. 7. Trace tricuspid regurgitation present. Electronically Signed By: Dawit Kenney MD -- Electronically Signed On: 10:50:00
[2016-07-14] MEDS ORDERED: ONDANSETRON HCL 4 MG/2 ML VIAL ONE (11:24)
[2016-07-14] MEDS ORDERED: ALPRAZOLAM 0.25 MG TAB PO PRN (11:27)
[2016-07-14] MEDS ORDERED: CHOLECALCIFEROL 1000 UNITS TAB PO SCH (12:00)
[2016-07-14] MEDS ORDERED: FERROUS SULFATE 324 MG TAB PO SCH (12:00)
--- NOTE | 2016-07-14 12:18 | CAPUEKG ---
[place], [place] Test Date: 2016-07-14 Pat Name: SAVI CHOWDHURY Department: Room: 431 Gender: Female Equipment Maintenance Tech: : Requested By: Order Number: Reading MD: Dawit Kenney MD Measurements Intervals [place] Rate: 69 P: MN: 212 QRS: -27 QRSD: 84 T: 159 QT: 384 QTc: 411 Interpretive Statements Sinus rhythm with 1st degree AV block Voltage criteria for left ventricular hypertrophy ST \T\ T wave abnormality, consider lateral ischemia Abnormal ECG Electronically Signed On 07-14-16 12:17:04 EST by Dawit Kenney MD <[id number]> [id number]
[2016-07-14 12:58] VITALS: PULSE 68
[2016-07-14] MEDS ORDERED: This patient is receiving warfarin therapy SCH (16:30)
[2016-07-14] MEDS ORDERED: WARFARIN 4 MG TAB PO SCH (18:00)
[2016-07-14] MEDS ORDERED: Warfarin Sodium 4 MG, Warfarin Sodium 3 MG PO SCH ×4 (18:00)
[2016-07-15] MEDS ORDERED: FERROUS SULFATE 324 MG TAB PO SCH (18:00)
== END 2016-07-14 12:45 | disposition short-term general hospital (02) | DRG 311 ==
LOC: ED 19:25 → PCU 21:07
PROVIDERS: ADMIT Internal Medicine; ATTEND Hospitalist
DX: I24.9 Acute ischemic heart disease, unspecified (principal); E11.65 Type 2 diabetes mellitus with hyperglycemia; I48.91 Unspecified atrial fibrillation; E87.6 Hypokalemia; E11.9 Type 2 diabetes mellitus without complications; D64.9 Anemia, unspecified; R53.81 Other malaise; I35.0 Nonrheumatic aortic (valve) stenosis; R42 Dizziness and giddiness; E78.00 Pure hypercholesterolemia, unspecified; Z79.01 Long term (current) use of anticoagulants; Z23 Encounter for immunization; Z79.84 Long term (current) use of oral hypoglycemic drugs; I25.2 Old myocardial infarction; Z87.891 Personal history of nicotine dependence; Z86.73 Personal history of transient ischemic attack (TIA), and cerebral infarction without residual deficits; Z79.899 Other long term (current) drug therapy
CPT/HCPCS: 36415; 71010; 80048; 80053; 80061; 80162; 82043; 82550; 82962; 83036; 83735; 83880; 84484; 85025; 85027; 85610; 85730; 90471; 90656; 90732; 93005; 93306; 96361; 96365; 96366; 96375; 99285; J2405; J3480; J3490